=== PATIENT | male | born 1990 | race Caucasian/White ===

== ENCOUNTER → 2017-08-07 16:18 | Outpatient (CLI) | payer BC, SELFPAY ==
[2017-08-07 16:21] LABS: Red Blood Cells-Urine 0 SEEN /hpf (0-5); Squamous Epithelial Cells - UA 0 SEEN /hpf (0-5); White Blood Cells 0 SEEN /hpf (0-5)
[2017-08-07 18:14] LABS: Absolute Lymphocyte Count 2.54 X10^3/ul (0.83-4.51); Absolute Neutrophil Count 4.8 X10^3/uL (2.0-7.7); Basophil# 0.03 X10^3/uL; Basophil% 0.4 % (0-1); Eosinophil# 0.13 X10^3/uL; Eosinophils% 1.6 % (0-5); Hematocrit 39.5 % (40-54); Hemoglobin 12.9 g/dl (13.0-16.5); Lymphocyte # 2.54 X10^3/ul (4.0); Lymphocyte % 31.1 % (19-41); Mean Corp Hgb Conc 32.7 g/gl (32-36); Mean Corpuscular Hgb 28.9 pg (27.0-32.0); Mean Corpuscular Volume 88.6 fL (80-94); Mean Platelet Vol. 10.6 fl (6.2-12.0); Monocyte# 0.63 X10^3/uL; Monocyte% 7.7 % (0-10); Neutrophil # 4.84 X10^3/uL (2.7-7.7); Neutrophil % 59.1 % (47-70); Platelet Count 322 K/mm3 (150-450); RBC Distribution Width CV 12.9 % (11.6-14.6); RBC Distribution Width SD 41.1 fl (35.1-43.9); Red Blood Count 4.46 M/mm3 (4.6-6.2); White Blood Count 8.2 K/mm3 (4.4-11.0)
[2017-08-07 18:15] LABS: POSITIVE COUNT NO; POSITIVE DIFFERENTIAL NO; POSITIVE MORPHOLOGY NO
[2017-08-07 18:25] LABS: Color, Urine Yellow (Yellow); Glucose, Dipstick Normal (Normal); Ketone-Dipstick Negative (Negative); Leukocyte Esterase-Dipstick 25 /ul (Negative); Nitrite-Dipstick Negative (Negative); Occult Blood-Urine Negative /ul (Negative); Protein-Dipstick Negative (Negative); Urine Bilirubin Dipstick Negative (Negative); Urine Clarity Clear (Clear); Urine Urobilinogen Normal (Normal)
[2017-08-07 18:28] LABS: ALB/GLOB Ratio 1.4 RATIO (0.9-2.4); AST(SGOT) 20 U/L (15-37); Alanine Aminotransfer ALT/SGPT 22 U/L (16-61); Albumin, Serum 4.3 g/dL (3.2-5.0); Alkaline Phosphatase 71 U/L (45-117); Anion Gap 10 (5-15); BUN 16 mg/dL (7-18); BUN/Creat Ratio 22.5 RATIO (10-20); Calcium,Total 8.9 mg/dL (8.5-10.1); Chloride 105 mmol/L (98-107); Creatinine, Serum 0.71 mg/dL (0.70-1.30); EST Glomerular Filtration Rate 142 mL/min (>60); Est Glom Filt Rate - Afr Amer 171 mL/min (>60); Globulin 3.1 g/dL (2.2-4.2); Glucose 86 mg/dL (74-106); Potassium 3.7 mmol/L (3.5-5.1); Protein, Total 7.4 g/dL (6.4-8.2); Sodium Level 140 mmol/L (136-145); Thyroid Stim Hormone (TSH) 2.08 uIU/mL (0.358-3.74)
[2017-08-07 18:31] LABS: Hemoglobin A1c 5.6 % (4.2-6.3)
[2017-08-07 18:42] LABS: Bacteria RARE /hpf (None Seen); Mucous, Urine 3+ /hpf (<or=2+)
[2017-08-07 18:55] LABS: Amphetamine Urine VISTA NEGATIVE (<1000 ng/mL); Barbiturate Urine VISTA NEGATIVE (< 200 ng/mL); Benzodiazepine Urine VISTA NEGATIVE (< 200 ng/mL); Cocaine Urine VISTA NEGATIVE (< 300 ng/mL); Ecstacy Urine VISTA NEGATIVE (< 500 ng/mL); Methadone Urine VISTA NEGATIVE (< 300 ng/mL); PCP Urine VISTA NEGATIVE (< 25 ng/mL); THC Urine VISTA POSITIVE (< 50 ng/mL); Vista UDS pH Range 5
== END ==
PROVIDERS: Visit Provider Family Medicine
DX: Z00.00 Encounter for general adult medical examination without abnormal findings (principal); R63.4 Abnormal weight loss; F17.200 Nicotine dependence, unspecified, uncomplicated; F12.10 Cannabis abuse, uncomplicated; Z83.3 Family history of diabetes mellitus
CPT/HCPCS: 80053; 80307; 81001; 83036; 84443; 85025

== ENCOUNTER 2018-10-16 22:17 | Emergency (ER) | payer BC, SELFPAY ==
[2018-10-16 22:19] VITALS: BP 101/58; PULSE 52; PULSE 59; RESP 17; TEMP 36.6; O2SAT 100; O2SAT 98; BMI 18.8
--- NOTE | 2018-10-16 22:26 | ED.VIS.GEN ---
History of Present Illness Chief Complaint: Laceration Narrative: This patient is a 28-year-old male who presents with a laceration. He dropped a utility knife onto his right foot and sustained a small laceration. His family called EMS and he was transported here. He denies recent illness. No numbness tingling weakness. No other injuries. Past Medical History - Allergies and Home Meds Allergies/Adverse Reactions: Allergies No Known Allergies Allergy (Verified 10/16/18 22:18) Primary Care Physician: Abdirashid Ritter MD [Primary Care Provider] - Past Medical History: None Smoking Status: Current every day smoker Review of Systems All systems negative except as indicated Physical Exam Vital Signs/Narrative: Vital Signs Temp Pulse Resp BP Pulse Ox 10/16/18 22:19 97.9 F 52 L 17 101/58 L 100 Head: Normocephalic Eyes: EOMI ENT: Moist mucous membranes Cardiovascular: Regular rate Respiratory: No distress Extremities: - - Active full range of motion of the foot and digits normal sensation distally to light touch brisk capillary refill, 1 cm laceration to the top of the right foot with no active bleeding Neurological: Alert Psychological: Normal affect Diagnostic/Tx/Re-eval - Medical Decision Making Laceration was cleansed with alcohol and then anesthetized with 1/2 cc of 1% lidocaine without epinephrine. Wound was cleansed with sterile saline. 2 simple interrupted 4?0 nonabsorbable sutures were placed. Patient instructed on local wound care and discharged home. ED Disposition - Plan for ED Patient: Instructions: ED Laceration All Referrals: Abdirashid Ritter MD [Primary Care Provider] -
== END 2018-10-16 23:02 | disposition home or self-care (01) ==
LOC: ED 23:01
PROVIDERS: Emergency Provider Emergency Medicine; Family Provider Family Medicine; PCP Family Medicine
DX: S91.311A Laceration without foreign body, right foot, initial encounter (principal); F17.200 Nicotine dependence, unspecified, uncomplicated; W26.0XXA Contact with knife, initial encounter; Y93.9 Activity, unspecified; Y92.89 Other specified places as the place of occurrence of the external cause; Y99.8 Other external cause status
CPT/HCPCS: 12001; 99284

== ENCOUNTER → 2019-10-14 16:33 | Outpatient (CLI) | payer BC, SELFPAY ==
[2019-10-14 18:27] LABS: ALB/GLOB Ratio 1.4 RATIO (0.9-2.4); AST(SGOT) 26 U/L (15-37); Absolute Lymphocyte Count 2.25 X10^3/uL (0.83-4.51); Absolute Neutrophil Count 5.2 X10^3/uL (2.0-7.7); Alanine Aminotransfer ALT/SGPT 28 U/L (16-61); Albumin, Serum 4.4 g/dL (3.2-5.0); Alkaline Phosphatase 52 U/L (45-117); Anion Gap 6 (5-15); BUN 14 mg/dL (7-18); BUN/Creat Ratio 15.5 RATIO (10-20); Basophil# 0.04 X10^3/uL; Basophil% 0.5 % (0-1); Chloride 105 mmol/L (98-107); Creatinine, Serum 0.91 mg/dL (0.70-1.30); EST Glomerular Filtration Rate 105 mL/min (>60); Eosinophil# 0.04 X10^3/uL; Eosinophils% 0.5 % (0-5); Est Glom Filt Rate - Afr Amer 127 mL/min (>60); Globulin 3.2 g/dL (2.2-4.2); Glucose 84 mg/dL (74-106); Hematocrit 42.4 % (40-54); Hemoglobin 13.7 g/dL (13.0-16.5); Lymphocyte # 2.25 X10^3/ul (4.0); Lymphocyte % 27.2 % (19-41); Mean Corp Hgb Conc 32.3 g/dL (32-36); Mean Corpuscular Hgb 28.8 pg (27.0-32.0); Mean Corpuscular Volume 89.3 fL (80-94); Mean Platelet Vol. 10.4 fl (6.2-12.0); Monocyte# 0.69 X10^3/uL; Monocyte% 8.3 % (0-10); NRBC Flagged by Analyzer 0 % (0-5); Neutrophil # 5.23 X10^3/uL (2.7-7.7); Neutrophil % 63.3 % (47-70); Platelet Count 261 K/mm3 (150-450); Potassium 3.9 mmol/L (3.5-5.1); Protein, Total 7.6 g/dL (6.4-8.2); RBC Distribution Width CV 12.9 % (11.6-14.6); RBC Distribution Width SD 42.3 fl (35.1-43.9); Red Blood Count 4.75 M/mm3 (4.6-6.2); Sodium Level 140 mmol/L (136-145); Thyroid Stim Hormone (TSH) 0.94 uIU/mL (0.358-3.74); White Blood Count 8.3 K/mm3 (4.4-11.0)
== END ==
LOC: MTLAB 16:36
PROVIDERS: PCP Family Medicine; Referring Provider Family Medicine; Visit Provider Family Medicine
DX: R00.2 Palpitations (principal)
CPT/HCPCS: 36415; 80053; 84443; 85025

== ENCOUNTER → 2019-12-14 10:54 | Outpatient (CLI) | payer BC, SELFPAY ==
[2019-12-02 13:05] VITALS: BMI 19.2
--- NOTE | 2019-12-14 10:55 | ECHOD_ITS ---
Reason For Study: ARRHYTHMIA Procedure This was a 2D Doppler, Color Flow transthoracic echocardiogram. Exam performed in department. Left Ventricle Normal LV size. Left ventricular systolic function is normal. The estimated ejection fraction is 60 %. Normal diastology for age. No regional wall motion abnormalities noted. Right Ventricle Normal RV size. Normal systolic function. Atria Normal left atrium. Normal right atrium. Mitral Valve Normal mitral valve. Tricuspid Valve Normal tricuspid valve. Mild (1+) tricuspid valve insufficiency. Pulmonary artery systolic pressure is 23 mmHg. Aortic Valve Trisinus/trileaflet aortic valve. Pulmonic Valve Normal pulmonic valve. Great Vessels Normal aortic root. The pulmonary artery is normal size. Inferior vena cava collapse with respiration. Pericardium/Pleural No pericardial effusion. MMode/2D Measurements & Calculations LVIDd: 5.1 cm IVSd: 0.70 cm Ao root diam: 2.9 cm LVIDs: 3.2 cm LVPWd: 0.74 cm RVDd: 3.0 cm FS: 37.7 % LAV(MOD-bp): 39.0 ml LA A4 area: 13.1 cm2 LA dimension(2D): 2.7 cm LAV(MOD-bp) Indexed: 22.5 ml/m2 LAV(MOD-sp2): 36.8 ml LAV(MOD-sp4): 33.7 ml RA A4 area: 14.6 cm2 Time Measurements MV dec time: 0.14 sec Doppler Measurements & Calculations MV E max ken: 62.6 cm/sec Lat Peak E' Ken: 17.5 cm/sec Med Peak E' Ken: 15.2 cm/sec MV A max ken: 42.8 cm/sec E/E' lat: 3.6 E/E' med: 4.1 MV E/A: 1.5 Ao V2 max: 126.7 cm/sec LV V1 max: 97.0 cm/sec PA V2 max: 98.0 cm/sec Ao max P.4 mmHg LV V1 max P.8 mmHg TR max ken: 228.7 cm/sec TR max P.9 mmHg Interpretation Summary Normal LV size. Left ventricular systolic function is normal. The estimated ejection fraction is 60 %. Normal diastology for age. Structurally normal valves. Ordering Physician: Shoaib Mejias Referring Physician: Abdirashid Ritter Performed By: Suri Mondragon, ALFREDO, RVT
== END ==
LOC: CVS 10:55
PROVIDERS: PCP Family Medicine; Referring Provider Internal Medicine Cardiovascular Disease; Visit Provider Internal Medicine Cardiovascular Disease
DX: R00.2 Palpitations (principal)
CPT/HCPCS: 93306

== ENCOUNTER → 2020-01-22 12:14 | Outpatient (CLI) | payer OTHER, BC, SELFPAY ==
[2020-01-13 10:36] VITALS: BMI 20.2
== END ==
PROVIDERS: PCP Family Medicine; Referring Provider Family Medicine; Visit Provider Family Medicine
DX: Z00.00 Encounter for general adult medical examination without abnormal findings (principal)

== ENCOUNTER → 2020-01-29 11:05 | Outpatient (CLI) | payer OTHER, BC, SELFPAY ==
[2020-01-13 10:36] VITALS: BMI 20.2
[2020-01-29 12:44] LABS: Creatinine, Serum 0.91 mg/dL (0.70-1.30); EST Glomerular Filtration Rate 105 mL/min (>60); Est Glom Filt Rate - Afr Amer 127 mL/min (>60)
[2020-01-29 18:24] LABS: 24HR. UA Prot. Total Volume 1000 mL; Urine Protein (24 Hour) 7.8 mg/dL (<11.9)
[2020-02-09 20:07] LABS: Dopamine, UR 149 ug/L (Undefined); Epinephrine, 24Ur 2 ug/24 hr (0-20); Epinephrine, Ur 15 ug/L (Undefined); Metanephrine, Ur 125 ug/L (Undefined); Norepinephrine, 24Ur 3 ug/24 hr (0-135); Norepinephrine, Ur 21 ug/L (Undefined); Normetanephrines, 24Ur 15 ug/24 hr (110-553); Normetanephrines, Ur 128 ug/L (Undefined)
[2020-02-09 20:56] LABS: Dopamine, 24Ur 18 ug/24 hr (0-510); Metanephrines, 24Ur 15 ug/24 hr (58-276)
== END ==
PROVIDERS: PCP Family Medicine; Referring Provider Family Medicine; Visit Provider Family Medicine
DX: R23.2 Flushing (principal)
CPT/HCPCS: 36415; 81050; 82384; 82565; 82570; 83835; 84156

== ENCOUNTER → 2022-05-09 | Outpatient (CLI) | payer OTHER, MEDICAID, SELFPAY ==
--- NOTE | 2022-05-09 12:50 | RAD_ITS ---
STUDY: X-RAY - UNILATERAL RIBS ( RIGHT ) REASON FOR EXAM: Male, 31 years old. RIB PAIN TECHNIQUE: 4 view(s) of the ribs. COMPARISON: None. FINDINGS: Normal visualized ribs without a demonstrated fracture. The visualized lung is clear and expanded. RAD/Ribs Unil 2V No CXR IMPRESSION: Normal x-ray examination of the ribs. Electronically Signed: Amos Hernandez MD at 10:24 EST ,
== END | disposition home or self-care (01) ==
PROVIDERS: PCP Family Medicine; Referring Provider Family Medicine; Visit Provider Family Medicine
DX: R07.81 Pleurodynia (principal)
CPT/HCPCS: 71100

== ENCOUNTER 2024-08-23 15:19 | Emergency (ER) | payer OTHER, SELFPAY ==
[2024-08-23 15:20] VITALS: BP 132/61; PULSE 89; RESP 16; TEMP 36.3; O2SAT 98; BMI 18.6
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
--- NOTE | 2024-08-23 16:00 | CT_ITS ---
PROCEDURE: SINUS/FACIAL BONE REASON FOR EXAM: NASAL TRAUMA TECHNIQUE: CT of the paranasal sinuses without contrast. Coronal and Sagittal reconstruction series were provided. One or more dose reduction techniques were used (e.g., Automated exposure control, adjustment of the mA and/or kV according to patient size, use of iterative reconstruction technique). COMPARISON: None. FINDINGS: Mild depression and cortical deformity of the tips of the bilateral nasal bones. Multifocal fracture deformities of the anterior, mid and posterior aspects of the nasal septum. No other facial bone fractures. Paranasal sinuses and mastoid air cells are clear. Mandible is intact. Visualized cervical spine is intact. Globes are intact. Soft tissues are within normal limits. CT/Sinus/Facial Bone IMPRESSION: Fracture deformities of the tips of the bilateral nasal bones as well as throug hout the nasal septum which may be acute and/or chronic. Please correlate. No other facial bone fractures. Reading Location: [facility]
== END 2024-08-23 16:58 | disposition home or self-care (01) ==
PROVIDERS: Emergency Provider Emergency Medicine; PCP Family Medicine; Visit Provider Emergency Medicine
DX: S02.2XXA Fracture of nasal bones, initial encounter for closed fracture (principal); S02.5XXA Fracture of tooth (traumatic), initial encounter for closed fracture; W50.0XXA Accidental hit or strike by another person, initial encounter; F17.220 Nicotine dependence, chewing tobacco, uncomplicated
CPT/HCPCS: 70486; 99282